=== PATIENT | male | born 1955 | race Caucasian/White ===

== ENCOUNTER 2023-05-23 09:01 | Emergency (ER) | payer MEDICARE, MEDICAID ==
[2023-05-23] MEDS ORDERED: Acetaminophen 325 MG TAB ONE (09:16)
== END 2023-05-23 10:22 | disposition home or self-care (01) ==
LOC: ERS 09:01
DX: M25.511 Pain in right shoulder (principal); I12.0 Hypertensive chronic kidney disease with stage 5 chronic kidney disease or end stage renal disease; N18.6 End stage renal disease; Z79.01 Long term (current) use of anticoagulants
CPT/HCPCS: 93005